=== PATIENT | male | born 1995 | race Caucasian/White ===

== ENCOUNTER 2016-05-04 13:11 | Emergency (ER) | payer OTHER ==
[~2016-05-04] VITALS: Ht 157.5 cm; Wt 85.0 kg
[2016-05-04 13:13] VITALS: BP 137/58; PULSE 93; RESP 18; TEMP 98.8; O2SAT 96
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
[2016-05-04] MEDS ORDERED: LIDOCAINE 1%/EPINEPHrine 1:100,000 SOLN 20 ML VIAL INFIL ONE (13:30)
[2016-05-04] MEDS ORDERED: KETOROLAC TROMETHAMINE 60 MG/2 ML (IM) VIAL IM ONE (13:30)
[2016-05-04] MEDS ORDERED: ORPHENADRINE INJ 60 MG/2 ML AMP IM ONE (13:30)
[2016-05-04] MEDS ORDERED: TETANUS/DIPHTHERIA TOXOID ADULT 0.5 ML VIAL IM ONE (13:30)
[2016-05-04] MEDS ORDERED: ROBA750T PO (14:34)
[2016-05-04] MEDS ORDERED: IBUP800T23 PO (14:34)
== END 2016-05-04 14:41 | disposition home or self-care (01) ==
LOC: NEPB 13:11
DX: S01.81XA Laceration without foreign body of other part of head, initial encounter (principal); Z23 Encounter for immunization; Z72.0 Tobacco use; V43.62XA Car passenger injured in collision with other type car in traffic accident, initial encounter; Y99.8 Other external cause status
CPT/HCPCS: 12013; 90471; 90714; 96372; 99284; J1885; J2360